=== PATIENT | male | born 1960 | race Caucasian/White ===

== ENCOUNTER 2020-04-11 08:12 | Emergency (ER) | payer OTHER, SELFPAY ==
[2020-04-11 08:32] VITALS: BP 166/93; PULSE 73; RESP 18; TEMP 36.1; O2SAT 98
--- NOTE | 2020-04-11 08:37 | ED.DENTAL ---
HPI - Dental/Oral General Chief complaint: Dental/Oral Stated complaint: swollen jaw Time Seen by Provider: 04/11/20 08:37 Source: patient Mode of arrival: ambulatory Limitations: no limitations History of Present Illness HPI Narrative: Rudy Christian is a 59 yo male with a PMH of HTN, GERD, high cholesterol, who comes to to [facility] with complaints of lower right jaw pain and premolar. He had dental pain yesterday which today it no longer hurts but his face is swollen. He had a root canal and the right lower premolar a year ago and the crown came off and has not been replaced. He has no fever no nausea or vomiting. Currently in contact with this diastolically for a new dentist, [facility] as he took a list of dentists that we have from the clinic Related Data Home Medications Medication Instructions Recorded Confirmed hydrochlorothiazide 12.5 mg PO DAILY 02/20/19 04/11/20 lisinopril 10 mg PO DAILY 02/20/19 04/11/20 rosuvastatin 40 mg PO DAILY 02/20/19 04/11/20 omeprazole 20 mg PO DAILY 04/11/20 04/11/20 Allergies Allergy/AdvReac Type Severity Reaction Status Date / Time No Known Allergies Allergy Verified 04/11/20 08:26 Review of Systems Review of Systems: Narrative: CONSTITUTIONAL: Denies fever, chills, sweats. EYES: Denies visual changes, redness, discharge. ENT: Denies rhinorrhea, congestion, sore throat, otalgia. Right jaw swelling after tooth ache yesterday CARDIOVASCULAR: Denies chest pain, palpitations, edema. RESPIRATORY: Denies dyspnea, wheezing, cough GASTROINTESTINAL: Denies abdominal pain, nausea, vomiting, diarrhea. GENITOURINARY: Denies dysuria, hematuria, abnormal discharge SKIN: Denies rash or itching. NEUROLOGIC: Denies numbness, or focal weakness. PSYCHIATRIC: Denies anxiety or depression. [facility] Past Medical History Medical History GERD (gastroesophageal reflux disease) High blood pressure High cholesterol Family History Family History Other Diabetes mellitus Heart disease Social History Social History Smokeless tobacco user: chewing tobacco Alcohol intake: never Comments At time of signature, I agree with nursing past medical, surgical, social and family history. There is no relevant family history pertinent to the presenting complaint. Exam Narrative: Exam Narrative: GENERAL: This is a well-nourished, well-developed patient, in no distress. HEAD: normocephalic, atraumatic. EYES: Sclera clear/white. Vision is grossly intact. EARS: External ears normal, Hearing grossly intact. NOSE: External nose normal without nasal discharge, nares without redness, no rhinorrhea. Mouth: Right lower premolar, tooth number#30, swelling in R cheek, no swelling along gum line THROAT: Mucous membranes moist, posterior pharynx pink NECK: Neck supple, non-tender CARDIOVASCULAR: Regular rate and rhythm without murmurs, gallops, or rubs. RESPIRATORY: Clear to auscultation. Breath sounds equal bilaterally. No wheezes, rales, or rhonchi. GASTROINTESTINAL: Abdomen soft, non-tender, SKIN: warm, intact with no suspicious lesions or rash, good texture and turgor. NEURO: awake, alert, and oriented to person, place and time. There were no obvious focal neurologic abnormalities. Steady gait EXTREMITIES: Normal range of motion. BACK: Nontender without deformity Course Course Emergency Course: Patient comes to urgent care with swelling of the right cheek no pain today; did have toothache yesterday Patient started on penicillin discussed dosing with time and methods to deal with pain if it should return as well as washing mouth with salt water and mouthwash he needs to find a dentist and [facility] also [facility] of providers Vital Signs Vital signs: Vital Signs Temperature 97 F L 04/11/20 08
== END 2020-04-11 09:00 | disposition home or self-care (01) ==
PROVIDERS: Emergency Provider Nurse Practitioner
DX: K04.7 Periapical abscess without sinus (principal); F17.220 Nicotine dependence, chewing tobacco, uncomplicated; K21.9 Gastro-esophageal reflux disease without esophagitis; I10 Essential (primary) hypertension; E78.00 Pure hypercholesterolemia, unspecified
CPT/HCPCS: 99213; G0463

== ENCOUNTER 2021-11-16 08:11 | Emergency (ER) | payer OTHER, SELFPAY ==
[2021-11-16 08:16] VITALS: BP 136/77; PULSE 64; RESP 20; TEMP 36.6; O2SAT 100
--- NOTE | 2021-11-16 08:23 | ED.BACK ---
HPI - Back Pain/Injury General Chief Complaint: Back Pain/Injury Stated Complaint: Low Back Pain Time Seen by Provider: 11/16/21 08:26 Source: patient Mode of arrival: ambulatory Limitations: no limitations History of Present Illness HPI Narrative: 60-year-old male presented for complaints of right lower back pain, onset yesterday around 10:30 in the morning. Denies injury, he first noticed it when he was bending over reaching for something under the cabinet. He endorses pain is worse when standing from a seated position. He denies pain radiating into the hips or the legs but does wrap towards the abdomen. He states he thought pain made him feel constipated so he took MiraLAX. He also tried heat with minimal relief. Denies numbness, tingling, weakness of lower extremities, change in gait, or falls. denies history of back injuries or surgeries. Related Data Home Medications Medication Instructions Recorded Confirmed hydrochlorothiazide 12.5 mg tablet 12.5 mg PO DAILY 02/20/19 11/16/21 lisinopril 10 mg tablet 10 mg PO DAILY 02/20/19 11/16/21 rosuvastatin 40 mg tablet 40 mg PO DAILY 02/20/19 11/16/21 omeprazole 20 mg tablet,delayed 20 mg PO DAILY 04/11/20 11/16/21 release Allergies Allergy/AdvReac Type Severity Reaction Status Date / Time No Known Allergies Allergy Verified 11/16/21 08:34 Review of Systems Review of Systems: CONSTITUTIONAL: Denies body aches, fever, chills CARDIOVASCULAR: Denies chest pain, palpitations, or edema. RESPIRATORY: Denies cough or dyspnea. GASTROINTESTINAL: Denies abdominal pain, nausea, vomiting, or diarrhea. SKIN: Denies rash, itching, or wounds. MUSCULOSKELETAL: Reports back pain NEUROLOGIC: Denies headache, numbness, tingling, or weakness. PSYCH: Denies depression or anxiety. All systems reviewed & are unremarkable except as noted in HPI and below PMFSH Past Medical History Medical History GERD (gastroesophageal reflux disease) High blood pressure High cholesterol Family History Family History Other Diabetes mellitus Heart disease Social History Social History Smokeless tobacco user: chewing tobacco Alcohol intake: never Comments At time of signature, I have reviewed and agree with nursing past medical, surgical, social and family history unless otherwise noted. Please see nursing chart for further information. There is no relevant family history pertinent to the presenting complaint Exam Narrative: GENERAL: Well-appearing CHEST: Speaks in full sentences. No respiratory distress. HEART: Regular rate and rhythm. Normal and equal peripheral pulses. EXTREMITIES: No vertebral point tenderness. BLE's normal strength and sensation, normal range of motion. gait steady. No ecchymosis. Alignment normal, pulse palpable and equal bilaterally, skin warm, dry, pink. Capillary refill less than 3 seconds. SKIN: 2 open blisters to the right of L3 area with surrounding erythema c/w zoster, tender with palpation, no active drainage NEURO: Alert and oriented x3. PSYCH: Normal mood and affect Course Course Emergency Course: Patient is aware of diagnosis, understands and agrees to treatment plan. Anticipatory guidance given. Patient agrees to follow-up as directed and is aware of reasons to seek care at the emergency department. Portions of this record may have been created with voice recognition software Level of Care: Express Care Visit Vital Signs Vital signs: Vital Signs Temperature 97.9 F 11/16/21 08:16 Pulse Rate 64 11/16/21 08:16 Respiratory Rate 20 11/16/21 08:16 Blood Pressure 136/77 11/16/21 08:16 Pulse Oximetry 100 11/16/21 08:16 Oxygen Delivery Room Air 11/16/21 08:16 Temperature 97.9 F 11/16/21 08:16 Pulse Rate 64 11/16/21 08:16 Respiratory Rate 20
== END 2021-11-16 08:50 | disposition home or self-care (01) ==
PROVIDERS: Emergency Provider Nurse Practitioner Family
DX: M54.50 Low back pain, unspecified (principal); B02.9 Zoster without complications; K21.9 Gastro-esophageal reflux disease without esophagitis; I10 Essential (primary) hypertension; E78.00 Pure hypercholesterolemia, unspecified; F17.220 Nicotine dependence, chewing tobacco, uncomplicated
CPT/HCPCS: 99213; G0463

== ENCOUNTER 2024-10-29 10:41 | Emergency (ER) | payer OTHER, SELFPAY ==
[2024-10-29 10:48] VITALS: BP 134/78; PULSE 71; RESP 20; TEMP 36.6; O2SAT 97
--- NOTE | 2024-10-29 11:21 | ED.EXTPRO ---
HPI - Extremity Problem General Chief complaint: Extremity Problem,Nontraumatic Stated complaint: Right Shoulder Pain Time Seen by Provider: 10/29/24 11:21 Source: patient Mode of arrival: ambulatory Limitations: no limitations History of Present Illness HPI Narrative: 63-year-old male presented for complaint of right shoulder pain for 1.5 weeks. Pain is worse when lifting the arm straight ahead, or any overhead movement. Denies specific injury. 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 He denies associated neck pain, numbness, tingling, pain radiating down the arm, or weakness of the extremity. Taking ibuprofen and using Biofreeze cream. Related Data Home Medications ?Medication ?Instructions ?Recorded ?Confirmed ?Last Taken ?Type rosuvastatin 40 mg tablet 40 mg PO DAILY 02/20/19 11/16/21 Unknown History omeprazole 20 mg tablet,delayed 20 mg PO DAILY 04/11/20 11/16/21 Unknown History release lisinopril 10 tablet 10/29/24 Unknown History mg-hydrochlorothiazide 12.5 mg tablet metformin .ROUTE 10/29/24 Unknown History Allergies Allergy/AdvReac Type Severity Reaction Status Date / Time No Known Allergies Allergy Verified 10/29/24 10:55 Review of Systems Review of Systems: CONSTITUTIONAL: Denies body aches, fever, chills EYES: Denies visual changes ENT: Denies rhinorrhea, congestion CARDIOVASCULAR: Denies chest pain, palpitations, or edema. RESPIRATORY: Denies cough or dyspnea. SKIN: Denies rash, itching, or wounds. MUSCULOSKELETAL: reports right shoulder pain NEUROLOGIC: Denies headache, numbness, tingling, or weakness. All systems reviewed & are unremarkable except as noted in HPI and below [facility] Past Medical History Medical History GERD (gastroesophageal reflux disease) High blood pressure High cholesterol Family History Family History Other Diabetes mellitus Heart disease Social History Social History Smokeless tobacco user: chewing tobacco Alcohol intake: never Comments At time of signature, I have reviewed and agree with nursing past medical, surgical, social and family history unless otherwise noted. Please see nursing chart for further information. There is no relevant family history pertinent to the presenting complaint Exam Narrative: GENERAL: Well-appearing, well-nourished, and in no acute distress. CHEST: Speaks in full sentences. No respiratory distress. HEART: Regular rate and rhythm. Normal and equal peripheral pulses. EXTREMITIES: RUE has normal strength and sensation, Limited range of motion with flexion/extension/rotation of right shoulder due to pain with movement. Cannot tolerate anterior extension >90 degrees. No edema or ecchymosis, No point tenderness. pulse palpable and equal bilaterally, skin warm, dry, pink. Capillary refill less than 3 seconds. SKIN: Warm, dry, no rash. NEURO: Alert and oriented x3. PSYCH: Normal mood and affect Course Course Emergency Course: Patient is aware of diagnosis, understands and agrees to treatment plan. Anticipatory guidance given. Patient agrees to follow-up as directed and is aware of reasons to seek care at the emergency department. Portions of this record may have been created with voice recognition software Level of Care: Express Care Visit Vital Signs Vital signs: Vital Signs Temperature 97.9 F 10/29/24 10:48 Pulse Rate 71 10/29/24 10:48 Respiratory Rate 20 10/29/24 10:48 Blood Pressure 134/78 10/29/24 10:48 Pulse Oximetry 97 10/29/24 10:48 Oxygen Delivery Room Air 10/29/24 10:48 Temperature 97.9 F 10/29/24 10:48 Pulse Rate 71 10/29/24 10:48 Respiratory Rate 20 10/29/24 10:48 Blood Pressure 134/78 10/29/24 10:48 Pulse Oximetry 97 10/29/24 10:48 Oxygen Delivery Room Air 10/29/24 10:48 Reviewed MDM - Extremity (Nontraumatic) MDM Narrative Medical decision making narrative: Discussed physical exam findings; Right shoulder pain. Reviewed prescriptions. Shared decision making, deferred imaging at this time. Patient has an senior medical billing specialist will follow up. Advised supportive measures and signs/symptoms to go to the ER. Pt is appropriate for outpt treatment and f/u. Differential Diagnosis Differential diagnosis: Likely other (Shoulder dislocation, clavicle fracture, humerus fracture, scapular fracture, acromioclavicular joint injury, rotator cuff tear, bicep tendon rupture, tricep tendon rupture, cervical radiculopathy) Discharge Plan Discharge Clinical Impression: Acute pain of right shoulder Patient Disposition: Home Condition: Stable Instructions: Antibiotic Form, Rotator Cuff Injury (ED), Shoulder Pain (ED) Additional Instructions: Rest. Avoid pushing, pulling, lifting or anything that worsens the symptoms. You may need to be cleared by senior medical billing specialist to return to normal work duty. Tylenol 1000mg every 8 hours as needed You can alternate with ibuprofen 800mg Take the steroid as directed Cyclobenzaprine (Flexeril) is a muscle relaxer. Take it as directed. It can cause drowsiness so do not drive or operate machinery until you know how it makes you feel. Alternate ice/heat to the site. Lidocaine or salon pas pain patch or use pain cream like icy/hot or biofreeze. Follow up with your primary care provider and senior medical billing specialist as needed in 1 week Go to the ER for worsening symptoms or concerns Patient Language: Bangladeshi Prescriptions: New cyclobenzaprine 10 mg tablet 10 mg PO TID PRN (Reason: muscle spasm) Qty: 12 0RF prednisone 20 mg tablet 20 mg PO DAILY Qty: 12 0RF Rx Instructions: take 3 tablets daily for 2 days, then 2 tablets daily for 2 days then 1 tablet daily for 2 days No Action rosuvastatin 40 mg Tablet 40 mg PO DAILY omeprazole 20 mg Tablet,Delayed Release (Dr/Ec) 20 mg PO DAILY lisinopril-hydrochlorothiazide 10-12.5 mg tablet metformin .ROUTE Follow-up/Referrals: Preston,Scott Encinas MD [Primary Care Provider, Unknown] James Fierro MD [Physician, Orthopedics] Stand Alone Forms: Work/School Release IP Time of Disposition: 11:37
--- OUTSIDE RECORDS SUMMARY | 2024-10-29 11:30 | XMS_ITS | Encounter Summary ---
Author Organization [facility] Address [address] [facility] [place] [address] Phone Care Team Providers Care Stress Test Technician Name Role Phone Scott Johnston MD Primary Care Provider [phone] Reason for Visit * Reason Comments Medication Refill Encounter Details Date Type Department Care Team ([facility] st Contact Info) Description 08/20/2023 Refill [facility] - Internal Medicine [facility] [address] [place] [phone] Scott Johnston MD [address] [place] [address] Medication Refill Social History Tobacco Use Types Packs/Day Years Used Date Smoking Tobacco: Never Passive Smoke Exposure: Never Smokeless Tobacco: Current Chew Alcohol Use Standard Drinks/Week Comments Not Currently 0 (1 standard drink = 0.6 oz pur e alcohol) [facility] Utilities Answer Date Recorded In the past 12 months has [employer] electric, gas, oil, or water company threatened to shut off services in your home? Patient declined 04/20/2023 Social Connection and Isolation Panel Answer Date Recorded In a typical week, how many times do you talk on the phone with family, friends, or neighbors? Patient declined 04/20/2023 How often do you get togethe r with friends or relatives? Patient declined 04/20/2023 How often do you attend taoism or scientologist serv ices? Patient declined 04/20/2023 Do you belong to any clubs o r organizations such as taoism groups, unions, fraternal or athletic groups, or school groups? Patient declined 04/20/2023 How often do you attend meet ings of the clubs or organizations you belong to? Patient declined 04/20/2023 Are you , , di vorced, , never , or living with a partner? Patient declined 04/20/2023 AUDIT-C Answer Date Recorded Q1: How often do you have a drink containing alcohol? Never 04/20/2023 Q2: How many drinks containi ng alcohol do you have on a typical day when you are drinking? Patient does not drink Q3: How often do you have si x or more drinks on one occasion? Never 04/20/2023 Overall Financial Resource Strain (CARDIA) Answe r Date Recorded How hard is it for you to pa y for the very basics like food, housing, medical care, and heating? Patient declined 04/20/2023 [facility] - Occupational Stress Questionnaire Answer Date Recorded Do you feel stress - tense, restless, nervous, or anxious, or unable to sleep at night because your mind is troubled all the time - these days? Patient declined 04/20/2023 Exercise Vital Sign Answer Date Recorde d On average, how many days pe r week do you engage in moderate to strenuous exercise (like a brisk walk)? Patient declined On average, how many minutes do you engage in exercise at this level? Patient declined 04/20/2023 Hunger Vital Sign Answer Date Recorded Within the past 12 months, y ou worried that your food would run out before you got the money to buy more. Patient declined Within the past 12 months, t he food you bought just didn't last and you didn't have money to get more. Patient declined PRAPARE - Transportation Answer Date Re corded In the past 12 months, has l ack of transportation kept you from medical appointments or from getting medications? Patient declined 04/20/2023 In the past 12 months, has l ack of transportation kept you from meetings, work, or from getting things needed for daily living? Patient declined 04/20/2023 Housing Stability Vital Sign Answer [place] e Recorded In the last 12 months, was t here a time when you were not able to pay the mortgage or rent on time? Patient declined 04/20/19 24 In the last 12 months, how many places have you lived? 1 04/20/2023 In the last 12 months, was t here a time when you did not have a steady place to sleep or slept in a retirement (including now)? Patient declined 04/20/2023 Education Answer Date Recorded What is the highest level of school you have completed or the highest degree you have received? 12th grade 05/16/2022 Sexually Active Control Partners Comments Not Currently Female Sex and Gender Information Value Date Recorded Sex Assigned at Not on file Legal Sex Male 5:23 AM CDT Gender Identity Male 12/27/2022 1:55 PM CDT Sexual Orientation Straight 12/27/2022 1: 55 PM CDT documented as of this encounter Miscellaneous Notes * Telephone Encounter - Jayla Grande RN - 08/22/2023 9:23 AM CDT Per nursing clinical judgement, provider to review and approve the medication(s) order(s) if appropriate. Requested Prescriptions Pending Prescriptions Disp Refills escitalopram (LEXAPRO) 20 MG Tablet [Pharmacy Med Name: ESCITALOPRAM 20MG TABLETS] 90 Tablet 0 Sig: TAKE 1 TABLET BY MOUTH DAILY SSRI (6 Month Refill Only) Protocol Passed - 08/20/2023 9:59 AM Passed - Visit with relevant provider in past 6 months or upcoming 90 days Recent Visits Date Type Provider Dept 04/22/23 Office Visit Sondra Smith PAC [facility] 04/08/23 Office Visit Sondra Smith PAC [facility] Showing recent visits within past 182 days and meeting all other requirements Future Appointments Date Type Provider Dept 09/01/23 Appointment [facility] 10/14/23 Appointment Sondra Smith PAC [facility] Showing future appointments within next 90 days and meeting all other requirements Passed - Patient has established therapy with SSRI for at least 6 months Passed - Has an encounter in the past 6 months with a depression, anxiety, adjustment disorder, OCD, or PTSD visit diagnosis documented in this encounter Plan of Treatment Upcoming Encounters Date Type Department Care Team (Late st Contact Info) Description 02/01/2025 8:00 AM VALUER Office Visit [facility] [place] [address] [place] [address] Scott Johnston MD [address] [place] [address] documented as of this encounter Visit Diagnoses Not on filedocumented in this encounter Care Teams Stress Test Technician Relationship Specialty Start Date End Date Scott Johnston MD PCP - General Internal Medicine 11/25/21 documented as of this encounter
--- OUTSIDE RECORDS SUMMARY | 2024-10-29 11:30 | XMS_ITS | Encounter Summary ---
Author Organization [facility] Address [address] [facility] [facility] [place] [address] Phone Care Team Providers Care Crew Director Name Role Phone Scott Johnston MD Primary Care Provider [phone]- [phone] Reason for Visit * Reason Comments Medication Refill Encounter Details Date Type Department Care Team ([facility] st Contact Info) Description 05/14/2023 Refill [facility] - Internal Medicine [facility] [address] [place] [phone] Sondra Smith, [facility] [address] [place] [address] Medication Refill Social History Tobacco Use Types Packs/Day Years Used Date Smoking Tobacco: Never Passive Smoke Exposure: Never Smokeless Tobacco: Current Chew Alcohol Use Standard Drinks/Week Comments Not Currently 0 (1 standard drink = 0.6 oz pur e alcohol) [facility] Utilities Answer Date Recorded In the past 12 months has [employer] electric, gas, oil, or water company threatened [...] declined 04/20/2023 How often do you attend protestant or adventism serv ices? Patient declined 04/20/2023 Do you belong to any clubs o r organizations such as protestant groups, unions, fraternal or athletic groups, or [...] medical care, and heating? Patient declined 04/20/2023 [facility] Occupat ional [facility] - Occupational Stress Questionnaire Answer Date [...] place to sleep or slept in a nursing home (including now)? Patient declined 04/20/2023 Education Answer [...] Telephone Encounter - Jayla Grande RN - 05/16/2023 9:08 AM CDT Medication failed the protocol, provider to review and approve the medication order if appropriate. Requested Prescriptions Pending Prescriptions Disp Refills escitalopram (LEXAPRO) 20 MG Tablet [Pharmacy Med Name: ESCITALOPRAM 20MG TABLETS] 90 Tablet 0 Sig: Take 1 Tablet by mouth daily. SSRI (6 Month Refill Only) Protocol Failed - 05/14/2023 9:31 AM Failed - Patient has established therapy with SSRI for at least 6 months Passed - Visit with relevant provider in past 6 months or upcoming 90 days Recent Visits Date Type Provider Dept 04/22/23 Office Visit Sondra Smith PAC [facility] 04/08/23 Office Visit Sondra Smith PAC [facility] 02/11/23 Office Visit Sondra Smith PAC [facility] 01/12/23 Office Visit Sondra Smith, [facility] 12/02/22 [facility] [place] Showing recent visits within past 182 days and meeting all other requirements Future Appointments Date Type Provider Dept 06/02/23 Appointment Scott Johnston MD [facility] [place] Showing future appointments within next 90 days and meeting all other requirements Passed - Has an encounter in the past 6 months with a depression, anxiety, adjustment disorder, OCD, or PTSD visit diagnosis documented in this encounter Plan of Treatment Upcoming Encounters Date Type Department Care Team (Late st Contact Info) Description 02/01/2025 8:00 AM REPAIRER SASH [employer] DOOR Office Visit [facility] - Primary Care - [place] [address] [place] [address] Scott Johnston MD [address] [place] [address] documented as of this encounter Visit Diagnoses Not on filedocumented in this encounter Care Teams Crew Director Relationship Specialty Start Date End Date Scott Johnston MD PCP - General Internal Medicine 11/25/21 documented as of this encounter
--- OUTSIDE RECORDS SUMMARY | 2024-10-29 11:30 | XMS_ITS | Clinical Summary ---
Author Organization [facility] Address [address] [place] [address] Care Team Providers Care Laboratory Inspector Name Role Phone Ryan De La O MD Primary Care Provider Allergies Active Allergy Reactions Criticality Noted Date Comments Atorvastatin Muscle pain Medium 09/13/2012 Medications omeprazole (PriLOSEC) 20 mg capsule 1 capsule (20 mg total) 2 Active aspirin 81 mg enteric coated tablet Take 1 tablet (81 mg total) by mouth daily 9 Active cholecalciferol 25 mcg (1,000 unit) tablet 1 tablet (1,000 Units total) 3 Active escitalopram (LEXAPRO) 5 mg tablet Take 1 tablet (5 mg total) by mouth daily 3 Active lisinopril-hydroCH LOROthiazide (ZESTORETIC) 10-12.5 mg per tablet TAKE 1 TABLET BY MOUTH EVERY MORNING FOR HEART OR BLOOD PRESSURE 2 Active metFORMIN (GLUCOPHAGE) 1,000 mg tablet 0.5 tablets (500 mg total) 3 Active naproxen (NAPROSYN) 375 mg tablet 2 Active methyl salicylate-menthol 15-10 % cream Apply topically 4 Active rosuvastatin (CRESTOR) 40 mg tablet Take 1 tablet (40 mg total) by mouth 2 Active naproxen (Naprosyn) 500 mg tabletIndications: Muscle strain Take 1 tablet (500 mg total) by mouth 2 (two) times a day with meals for 7 days 14 tablet 4 Active ondansetron ODT (ZOFRAN-ODT) 4 mg disintegrating tabletIndications: Nausea and vomiting, unspecified vomiting type Take 1 tablet (4 mg total) by mouth every 6 (six) hours as needed for nausea or vomiting 8 tablet 5 Active Active Problems Problem Noted Date Diagnosed Date Hypertension 01/04/2023 Fatigue 01/04/2023 Gastroesophageal reflux disease without esophagi tis 01/04/2023 Hyperlipidemia 01/04/2023 Impaired fasting glucose 01/04/2023 Low back pain 01/04/2023 Myopia 01/04/2023 Overview (01/04/2023): Jun 25, 2016 Entered By: ITZEL NOLASCO Comment: dx 05/01/16 by non-a provider Pain in both knees 01/04/2023 Pain in left wrist 01/04/2023 Poorly controlled diabetes mellitus 01/04/2023 Presbyopia 01/04/2023 Overview (01/04/2023): Jun 25, 2016 Entered By: ITZEL NOLASCO Comment: Dx 05/01/16 by NON-A PCP Dr. 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 Gender Identity Not on file Sexual Orientation Not on file Obstetrics History Last Filed Vital Signs Vital Sign Reading Time Taken Comments Blood Pressure 130/88 07/19/2024 8:48 AM CDT Pulse 74 07/19/2024 8:48 AM CDT Temperature 36.5 C (97.7 F) 07/19/2024 8:48 AM CDT Respiratory Rate 20 07/19/2024 8:48 AM CDT Oxygen Saturation 98% 07/19/2024 8:48 AM CDT Inhaled Oxygen Concentration - - Weight 102.1 kg (225 lb) 07/19/2024 8:48 AM CDT Height 175.3 cm (5' 9) 07/19/2024 8:48 AM CDT Body Mass Index 33.23 07/19/2024 8:48 AM CDT Plan of Treatment Health Maintenance Due Date Last Done Comments Albumin Creatinine Ratio, Urine 1959 Colon Cancer Screening-Colonoscopy 1959 Depression Screening 1959 Hemoglobin A1C 1959 Hepatitis C Screening 1959 Prostate Cancer Screening-PSA 1959 eGFR 1959 Dilated Eye Exam 1959 Foot Exam 1959 Regular Well Visit/Exam 18-64 11/21/1977 Covid-19 Vaccine (7 - 2023-2 5 season) 2023 12/06/2022, 02/06/2022, 07/08/2021, Additional history exists Lipid Panel 12/07/2023 12/06/2022 Influenza Vaccine (#1) 2024 , 12/02/2022, 11/25/2021, Additional history exists Pneumococcal vaccine <65 (2 of 2 - PCV) 12/07/2024 12/08/2023, 05/21/2014 DTaP/Tdap/Td Vaccine (3 - Td or Tdap) 06/21/2034 06/21/2024, 05/21/2014, 08/12/2004 Hepatitis B Screening Completed 10/11/2012 , 08/11/2012, 04/07/2012 Zoster Vaccine Completed 01/03/2018, 07/04/2017 Insurance [facility] PLUS Care Teams Laboratory Inspector Relationship Specialty Start Date End Date Ryan De La O MD [address]/[place] [address] PCP - General 02/21/19
--- OUTSIDE RECORDS SUMMARY | 2024-10-29 11:30 | XMS_ITS | Clinical Summary ---
Author Organization [facility] Address [address] [place] [address] Phone Care Team Providers Care Icu Staff Nurse Name Role Phone Scott Johnston MD Primary Care Provider Allergies Active Allergy Reactions Criticality Noted Date Comments Atorvastatin Other (see Comments) Medium 09/13/2012 Medications omeprazole (PriLOSEC) 20 MG CAPSULE DELAYED RELEASE 10/04/2021 Active rosuvastatin (CRESTOR) 40 MG Tablet 11/13/2021 Active aspirin EC 81 MG Tablet Delayed Response Take 81 mg by mouth daily. 07/04/2018 Active metFORMIN (GLUCOPHAGE) 1000 MG Tablet 500 mg. 06/22/2022 Acti ve Vitamin D3 1000 UNIT Tablet 25 mcg. 06/22/2022 Active lisinopril-hydro CHLOROthiazide (PRINZIDE, ZESTORETIC) 10-12.5 MG Tablet Take 1 Tablet by mouth daily. 90 Tablet 05/08/2024 Active Active Problems Problem Noted Date Diagnosed Date Essential hypertension, benign 01/26/2024 Overview (01/26/2024): Controlled. Continue current medication. Type 2 diabetes mellitus treated without insulin 01/26/2024 Immunizations Immunization Administration Dates Next Due Covid-19, Mrna, Lnp-s, Pf, 1 00 Mcg Or 50 Mcg Dose (MODERNA) 07/08/2021 Covid-19, Mrna, Lnp-s, Pf, 3 0 Mcg/0.3 Ml Dose (Pfizer) 12/20/2020,06/03/2020,05/13/2020 Covid-19, Mrna, Lnp-s, Pf, Rex-sucrose, 30 Mcg/0.3 Ml (Pfizer) 12/06/2022 Hepatitis B Vaccine 10/11/2012,08/11/2012,2012 Influenza Vaccine 12/13/2014,01/29/2014 Influenza Vaccine greater than 3 yrs 12/19/2023 Influenza Vaccine, Quadrivalent, PF 11/06,11/25/2021,12/17/2020,2016 Influenza Vaccine,unspecifie d Formulation 12/07/2017,12/06/2012,12/10/2011,2004 Influenza, Injectable, Quadrivalent 12/10/2019 Pneumococcal Vaccine Adult - 23 Valent 05/21/2014 RSV, Recombinant, Protein Alvarado bunit Rsvpref, Adjuvant Recon (Arexvy) 12/06/2022 Respiratory Syncytial Virus (Rsv), Unspecified 12/06/2022 TDAP Vaccine 05/21/2014 Td, Unspecified Formulation 08/12/2004 Zoster Vaccine Recombinant 01/03/2018,07/04/2017 Family History Medical History Relation Name Comments No Known Problems Brother High Cholesterol Father Cancer Mother Diabetes Mother Hypertension Mother No Known Problems Sister Relation Name Status Comments Brother Alive Father Alive Mother Sister Alive Social History Tobacco Use Types Packs/Day Years Used Date Smoking Tobacco: Never Passive Smoke Exposure: Never Smokeless Tobacco: Current Chew Tobacco Cessation:Ready to Q uit: No; Counseling Given: No Alcohol Use Standard Drinks/Week Comments Not Currently 0 (1 standard drink = 0.6 oz pur e alcohol) [facility] Utilities Answer Date Recorded In the past 12 months has [employer], gas, oil, or water [employer] threatened to shut off services in your home? No 03/08/2024 Social Connection and Isolation Panel Answer Date Recorded In a typical week, how many times do you talk on the phone with family, friends, or neighbors? Once a week 03/08/2024 How often do you get together with friends or re latives? Never 03/08/2024 How often do you attend oriental orthodox or denominational serv ices? Never 03/08/2024 Do you belong to any clubs o r organizations such as oriental orthodox groups, unions, fraternal or athletic groups, or school groups? No 03/08/2024 How often do you attend meet ings of the clubs or organizations you belong to? Never 03/08/2024 Marital Status Not on file 03/08/2024 AUDIT-C Answer Date Recorded Q1: How often do you have a drink containing alcohol? Never 03/08/2024 Q2: How many drinks containi ng alcohol do you have on a typical day when you are drinking? Patient does not drink Q3: How often do you have si x or more drinks on one occasion? Never 03/08/2024 Overall Financial Resource Strain (CARDIA) Answe r Date Recorded How hard is it for you to pa y for the very basics like food, housing, medical care, and heating? Not very hard 03/08/2024 PHQ-2 Answer Date Recorded Total Score - Questions 1-9 0 01/06 [facility] - Occupational Stress Questionnaire Answer Date Recorded Do you feel stress - tense, restless, nervous, or anxious, or unable to sleep at night because your mind is troubled all the time - these days? Not at all 03/08/2024 Exercise Vital Sign Answer Date Recorde d On average, how many days pe r week do you engage in moderate to strenuous exercise (like a brisk walk)? 4 days 03/08/2024 On average, how many minutes do you engage in exercise at this level? 20 min 03/08/2024 Hunger Vital Sign Answer Date Recorded Within the past 12 months, y ou worried that your food would run out before you got the money to buy more. Never true 03/08/19 25 Within the past 12 months, t he food you bought just didn't last and you didn't have money to get more. Never true 03/08/2024 PRAPARE - Transportation Answer Date Re corded In the past 12 months, has l ack of transportation kept you from medical appointments or from getting medications? No 04/2024 In the past 12 months, has l ack of transportation kept you from meetings, work, or from getting things needed for daily living? No 03/08/2024 Housing Stability Vital Sign Answer [place] [...] place to sleep or slept in a mcc (including now)? Patient declined 04/20/2023 Housing Stability Vital Sign Answer [place] Recorded In the last 12 months, was t here a time when you were not able to pay the mortgage or rent on time? No 03/08/2024 In the past 12 months, how m any times have you moved where you were living? 0 03/08/2024 At any time in the past 12 m [facility], were you homeless or living in a mcc (including now)? No 03/08/2024 Education Answer Date Recorded What is the [...] Orientation Straight 12/27/2022 1: 55 PM CDT Last Filed Vital Signs Vital Sign Reading Time Taken Comments Blood Pressure 114/74 03/09/2024 1:12 PM SUPERVISOR ACCOUNTING [employer]ERKS Pulse 69 03/09/2024 1:12 PM [employer]VIS[employer]OUNT[employer]ERKS Temperature 36.4 C (97.6 F) 03/09/2024 1:12 PM [employer]OUNTING [employer]ERKS Respiratory Rate 12 03/09/2024 1:12 PM SUPERVISOR ACCOUNTING [employer]ERKS Oxygen Saturation 98% 03/09/2024 1:12 PM [employer]PERVIS[employer]OUNTING [employer]ERKS Inhaled Oxygen Concentration - - Weight 103.9 kg (229 lb) 03/09/2024 1:12 PM [employer]PERVIS[employer] ACCOUNTING [employer]ERKS Height 175.3 cm (5' 9) 01/26/2024 1:22 PM SUPERVISOR ACCOUNTING [employer]ERKS Body Mass Index 33.82 01/26/2024 1:22 PM SUPERVISOR ACCOUNTING [employer]ERKS Plan of Treatment Upcoming Encounters Date Type Department Care Team (Late st Contact Info) Description 02/01/2025 8:00 AM SUPERVISOR ACCOUNTING [employer]ERKS Office Visit [facility] [place] [address] [place] [address] Scott Johnston MD [address] [place], [place] [id number] Health Maintenance Due Date Last Done Comments Diabetes: Eye Exam 1959 Diabetes: Foot Exam 1960 Hepatitis C Virus (HCV) Screening 1960 Colonoscopy 11/21/2004 Immunochemical Fecal Occult Blood 11/21/2004 Diabetes: Hemoglobin A1c 06/02/2023 12/02/2022 Diabetes: Nephropathy Screening 12/07/2023 12/06/2022 Td Immunization Every 10 Years (Adults With 1 Tdap) 05/21/2024 05/21/2014, 08/12/2004 Influenza Immunization (#1) 11/05/202412/05, 12/02/2022, 11/25/2021, Additional history exists Cologuard 06/14/2025 06/14/2022 Colorectal Cancer Screening 06/14/2025 Hepatitis B Immunization Completed 013, 08/11/2012, 04/07/2012 DTaP/Tdap/Td Immunization Discontinued 05/21/2014, 10/2004 PSA Discussion Completed 12/06/2022 Respiratory Syncytial Virus (RSV) Immunization (Adult) Completed 12/06/2022, 12/06/2022 SARS-COV-2 Immunization Completed 12/19/19 24, 12/06/2022, 02/06/2022, Additional history exists Pneumococcal Immunization (50+ years) Completed 04/08/2024, 12/08/2023, 05/21/2014 Pneumococcal Immunization Combined Discontinued 04/08/2024, 12/08/2023, 05/21/2014 Zoster Immunization Completed 04/08/2024, 12/19/2023, 01/03/2018, Additional history exists Human Papillomavirus (HPV) Immunization Aged Out No longer eligible based on patient's age to complete this topic Meningococcal Immunization (ACWY) Aged Out No longer eligible based on patient's age to complete this topic Rotavirus Immunization Aged Out No lo nger eligible based on patient's age to complete this topic Procedures Procedure Name Priority Date/Time Associated Diagnosis Comments CMP (COMPREHENSIVE METABOLIC PANEL) Routine 12/06/2022 8:41 AM CDT Type 2 diabetes mellitus treated without insulin (HCC) PSA SCREEN Routine 12/06/2022 8:41 AM CDT Screening for prostate cancer POCT GLYCOSYLATED HEMOGLOBIN Routine 12/02/2022 2:45 PM CDT Type 2 diabetes mellitus treated without insulin (HCC) COLOGUARD Routine 06/14/2022 8:40 AM CDT Screening for colorectal cancer from Last 3 Months or Most Recently Relevant to Health Maintenance Results * PSA SCREEN (12/06/2022 8:41 AM CDT) Pathologist [facility] PSA SCREEN, TOTAL 0.75 <4.00 ng/mL 12/06/2022 4:02 PM CDT [facility] Blood Venipuncture / Unknown 12/06/2022 8:41 AM CDT 12/06/2022 8:41 AM CDT Narrative [facility] - 12/06/2022 4:02 PM CDT The [employer] Total PSA assay is a Chemiluminescent Microparticle Immunoassay (CMIA) for the quantitative determination of total PSA (both free PSA and PSA complexed to [id number]) in human serum. us Scott Johnston MD CHEMISTRY ORDERABLES Final Result [facility] [address] [place] [address] * (ABNORMAL) CMP (COMPREHENSIVE METABOLIC PANEL) (12/06/2022 8:41 AM CDT) Pathologist [facility] SODIUM 142 136 - 145 mmol/L 12/06/2022 3:40 PM CDT [facility] POTASSIUM 4.2 3.5 - 5.1 mmol/L 12/06/2022 3:40 PM CDT [facility] CHLORIDE 104 98 - 107 mmol/L 12/06/2022 3:40 PM CDT [facility] CO2, VENOUS 25 22 - 30 mmol/L 12/06/2022 3:40 PM CDT [facility] ANION GAP 17.2 <18.0 mmol/L 12/06/2022 3:40 PM CDT [facility] GLUCOSE 73 70 - 99 mg/dL 12/06/2022 3:40 PM CDT [facility] BUN 24 8 - 26 mg/dL 12/06/2022 3:40 PM CDT [facility] CREATININE, BLOOD 1.04 0.70 - 1.30 mg/dL 12/06/2022 3:40 PM CDT [facility] BUN/CREATININE RATIO 23(H) 12 - 20 ratio 12/06/2022 3:40 PM CDT [facility] TOTAL PROTEIN 7.0 6.3 - 8.2 g/dL 12/06/2022 3:40 PM CDT [facility] ALBUMIN 4.1 3.5 - 5.0 g/dL 12/06/2022 3:40 PM CDT [facility] A/G RATIO 1.4 1.0 - 2.2 12/06/2022 3:40 PM CDT [facility] CALCIUM 9.6 8.7 - 10.5 mg/dL 12/06/2022 3:40 PM CDT [facility] T BILI 0.6 0.2 - 1.2 mg/dL 12/06/2022 3:40 PM CDT [facility] SGOT (AST) 19 5 - 34 U/L 12/06/2022 3:40 PM CDT [facility] SGPT (ALT) 25 0 - 55 U/L 12/06/2022 3:40 PM CDT [facility] ALKALINE PHOSPHATASE 52 40 - 150 U/L 12/06/2022 3:40 PM CDT [facility] IS THE PATIENT REQUIRED TO BE FASTING? No 12/06/2022 3:40 PM CDT [facility] GFR, ESTIMATED >60 >=60 12/06/2022 3:40 PM CDT [facility] Comment: Creatinine Clearance is the preferred criteria for selecting drug dose adjustments in renally impaired patients. The GFR is provided as additional pertinent clinical information. GFR is reported in mL/min/1.73 sq m. Calculation based on the Chronic Kidney Disease Epidemiology Collaboration (CKD- EPI) equation refit without adjustment for race. GFR, EST. >60 >=60 023 3:40 PM CDT [facility] GFR, EST. NONAFRICAN >60 >=60 12/06/2022 3:40 PM CDT [facility] Blood Venipuncture / Unknown 12/06/2022 8:41 AM CDT 12/06/2022 8:41 AM CDT us Scott Johnston MD CHEMISTRY ORDERABLES Final Result [facility] [address] [place] [address] * (ABNORMAL) POCT GLYCOSYLATED HEMOGLOBIN (12/02/2022 2:45 PM CDT) HGB-A1C 6.3(A) 4 - 6 % 12/02/2022 2:45 PM CDT us Scott Johnston MD POINT OF CARE TESTING (MANU AL) Final Result * COLOGUARD (06/14/2022 8:40 AM CDT) Cologuard Negative Negative [facility] Comment: NEGATIVE TEST RESULT. A negative Cologuard result indicates a low likelihood that a colorectal cancer (CRC) or advanced adenoma (adenomatous polyps with more advanced pre-malignant features) is present. The chance that a person with a negative Cologuard test has a colorectal cancer is less than 1 in 1500 (negative predictive value >99.9%) or has an advanced adenoma is less than 5.3% (negative predictive value 94.7%). These data are based on a prospective cross-sectional study of 10,000 individuals at average risk for colorectal cancer who were screened with both Cologuard and colonoscopy. (Fernando Mazariegos al, N Engl J Med 2014;370(14):4473-0316) The normal value (reference range) for this assay is negative. COLOGUARD RE-SCREENING RECOMMENDATION: Periodic colorectal cancer screening is an important part of preventive healthcare for asymptomatic individuals at average risk for colorectal cancer. Following a negative Cologuard result, the [place] [employer] and U.S. Multi-Society Task Force screening guidelines recommend a Cologuard re-screening interval of 3 years. References: [place] [employer] Guideline for Colorectal Cancer Screening: https://www.cancer.org/cancer/ofszy-vxzvfi-neyjyi/xbclhivge-tobobrxkd-szafnlf/ acs-recommendations.html.; Gaurav AYALA, Brittany BLEVINS, Nila NEGRO, Colorectal Cancer Screening: Recommendations for Physicians and Patients from the U.S. Multi-Society Task Force on Colorectal Cancer Screening , Am J Gastroenterology 2017; 112:7529-4454. TEST DESCRIPTION: Composite algorithmic analysis of stool DNA-biomarkers with hemoglobin immunoassay. Quantitative values of individual biomarkers are not reportable and are not associated with individual biomarker result reference ranges. Cologuard is intended for colorectal cancer screening of adults of either sex, 45 years or older, who are at average-risk for colorectal cancer (CRC). Cologuard has been approved for use by the U.S. FDA. The performance of Cologuard was established in a cross sectional study of average-risk adults aged 50-84. Cologuard performance in patients ages 45 to 49 years was estimated by sub-group analysis of near-age groups. Colonoscopies performed for a positive result may find as the most clinically significant lesion: colorectal cancer [4.0%], advanced adenoma (including sessile serrated polyps greater than or equal to 1cm diameter) [20%] or non- advanced adenoma [31%]; or no colorectal neoplasia [45%]. These estimates are derived from a prospective cross-sectional screening study of 10,000 individuals at average risk for colorectal cancer who were screened with both Cologuard and colonoscopy. (Fernando Kapoor, N Engl J Med 2014;370(14):0548-8664.) Cologuard may produce a false negative or false positive result (no colorectal cancer or precancerous polyp present at colonoscopy follow up). A negative Cologuard test result does not guarantee the absence of CRC or advanced adenoma (pre-cancer). The current Cologuard screening interval is every 3 years. ([employer] [employer] and U.S. Multi-Society Task Force). Cologuard performance data in a 10,000 patient pivotal study using colonoscopy as the reference method can be accessed at the following location: www.[employer]/results. Additional description of the Cologuard test process, warnings and precautions can be found at www.cologuard.com. Stool 06/14/2022 8:40 AM CDT 06/15/2022 3:41 PM CDT Scott Johnston MD BODY FLUIDS & STOOLS ORDERA BLES Final Result Performing Organization Address City/State/[facility] Co de Phone Number [email or web address] [address] [place] [address], [employer] [address] [place] [address] from Last 3 Months or Most Recently Relevant to Health Maintenance Insurance Care Teams Icu Staff Nurse Relationship Specialty Start Date End Date Scott Johnston MD PCP - General Internal Medicine 11/25/21
== END 2024-10-29 11:43 | disposition home or self-care (01) ==
PROVIDERS: Emergency Provider Nurse Practitioner Family; PCP Internal Medicine
DX: M25.511 Pain in right shoulder (principal); F17.220 Nicotine dependence, chewing tobacco, uncomplicated; K21.9 Gastro-esophageal reflux disease without esophagitis; I10 Essential (primary) hypertension; E78.00 Pure hypercholesterolemia, unspecified
CPT/HCPCS: 99213; G0463